=== PATIENT | male | born 1950 | race Caucasian/White ===

== ENCOUNTER 2021-01-03 17:01 | Emergency (ER) | payer OTHER ==
[~2021-01-03] VITALS: Ht 198.1 cm; Wt 113.4 kg
[2021-01-03 17:57] VITALS: BP 100/52
[2021-01-03 17:58] LABS: Basophils # (auto) 0 10 ^3/uL (0-0.2); Basophils % (auto) 1.1 % (0.0-2.0); Eosinophils # (auto) 0.3 10 ^3/uL (0-0.8); Eosinophils % (auto) 7.2 % (0.0-7.0); Hematocrit 40.1 % (41.0-53.0); Hemoglobin 13.5 g/dL (13.5-17.5); Lymphocytes # (auto) 1.9 10 ^3/uL (0.4-5.4); Lymphocytes % (auto) 40.1 % (10.0-50.0); Mean Corpuscular Hemoglobin 30.8 pg (28.0-32.0); Mean Corpuscular Hgb Conc. 33.6 g/dL (32.0-36.0); Mean Corpuscular Volume 91.9 fL (80.0-100.0); Monocytes # (auto) 0.4 10 ^3/uL (0-1.3); Monocytes % (auto) 9.2 % (0.0-12.0); Neutrophils % (auto) 42.4 % (37.0-80.0); Nucleated Red Blood Cells % 0.1 %; Platelet Count (auto) 179 10^3/uL (140-450); Red Blood Cells 4.37 10^6/uL (4.5-5.90); Red Cell Distribution Width 13.3 % (11.8-14.3); White Blood Cell 4.7 10^3/uL (4.4-10.8)
[2021-01-03 18:13] LABS: Albumin 3.6 g/dL (3.4-5.0); Anion Gap 9 (5-15); Calcium 8.2 mg/dL (8.5-10.1); Carbon Dioxide 20 mmol/L (21-32); Chloride 108 mmol/L (98-107); Glucose 96 mg/dL (74-106); Sodium 137 mmol/L (136-145)
[2021-01-03 18:15] LABS: Alanine Aminotransferase 32 U/L (16-61); Aspartate Aminotransferase 22 U/L (15-37); GFR African American 129 mL/min; GFR Non-African American 107 mL/min
[2021-01-03 18:29] LABS: Alkaline Phosphatase 89 U/L (45-117); BUN/Creatinine Ratio 16.9; Bilirubin, Total 0.4 mg/dL (0.2-1.0); Blood Urea Nitrogen 13 mg/dL (7-18); Total Protein 7.2 g/dL (6.4-8.2)
== END 2021-01-03 18:20 | disposition left against medical advice (07) ==
LOC: ER 17:09
DX: R53.1 Weakness (principal); Z53.21 Procedure and treatment not carried out due to patient leaving prior to being seen by health care provider
CPT/HCPCS: 36415; 80053; 83735; 83880; 84484; 85025; 93005

== ENCOUNTER 2021-02-15 06:45 | Inpatient (IN) | payer OTHER ==
[~2021-02-15] VITALS: Ht 198.1 cm; Wt 116.6 kg
[2021-02-15 07:45] LABS: Basophils # (auto) 0 10 ^3/uL (0-0.2); Basophils % (auto) 0.7 % (0.0-2.0); Eosinophils # (auto) 0.3 10 ^3/uL (0-0.8); Hematocrit 40.5 % (41.0-53.0); Hemoglobin 13.9 g/dL (13.5-17.5); Lymphocytes % (auto) 21.7 % (10.0-50.0); Mean Corpuscular Hemoglobin 31.2 pg (28.0-32.0); Mean Corpuscular Hgb Conc. 34.4 g/dL (32.0-36.0); Mean Corpuscular Volume 90.7 fL (80.0-100.0); Monocytes # (auto) 0.5 10 ^3/uL (0-1.3); Neutrophils # (auto) 2.9 10 ^3/uL (1.6-8.6); Neutrophils % (auto) 59.6 % (37.0-80.0); Nucleated Red Blood Cells % 0.1 %; Platelet Count (auto) 184 10^3/uL (140-450); Red Blood Cells 4.46 10^6/uL (4.5-5.90); Red Cell Distribution Width 13.7 % (11.8-14.3); White Blood Cell 4.8 10^3/uL (4.4-10.8)
[2021-02-15 07:58] LABS: INR 0.98 (0.9-1.15); Partial Thromboplastin Time 27.4 sec (23.0-31.2)
[2021-02-15 08:02] LABS: Albumin 3.6 g/dL (3.4-5.0); Anion Gap 9 (5-15); Blood Urea Nitrogen 12 mg/dL (7-18); Calcium 8.3 mg/dL (8.5-10.1); Carbon Dioxide 21 mmol/L (21-32); Chloride 112 mmol/L (98-107); Glucose 96 mg/dL (74-106); Sodium 142 mmol/L (136-145)
[2021-02-15 08:08] LABS: Alanine Aminotransferase 25 U/L (16-61); Alkaline Phosphatase 95 U/L (45-117); Aspartate Aminotransferase 17 U/L (15-37); BUN/Creatinine Ratio 15.8; Bilirubin, Total 0.3 mg/dL (0.2-1.0); GFR African American 131 mL/min; GFR Non-African American 108 mL/min; Total Protein 7.1 g/dL (6.4-8.2)
[2021-02-15] MEDS ORDERED: IOHEXOL 350 MG/ML 100ML IJ ONE (08:12)
[2021-02-15] MEDS ORDERED: SODIUM CHLORIDE 0.9% 1,000 ML IV ONE (09:15)
[2021-02-15] MEDS ORDERED: MORPHINE SULF INJ 2 MG/ML SYRINGE 1ML IV PRN ×3 (11:00→12:15)
[2021-02-15] MEDS ORDERED: NITROGLYCERIN 0.4 MG SL TAB SL PRN ×3 (11:00→12:15)
[2021-02-15] MEDS ORDERED: IPRATROPIUM BROM 0.5 MG/2.5ML INH SOL NEB PRN (12:15)
[2021-02-15] MEDS ORDERED: LORazepam 0.5 MG TAB PO PRN (12:15)
[2021-02-15] MEDS: ALUM & MAG HYDROX-SIMETH LIQ(MAALOX) 30 ML PO ONE ×2 (12:15→13:14)
[2021-02-15] MEDS ORDERED: ALUM & MAG HYDROX-SIMETH LIQ(MAALOX) 30 ML PO PRN (12:15)
[2021-02-15] MEDS ORDERED: HYDROcodone-ACET 5/325MG TAB PO PRN (12:15)
[2021-02-15] MEDS: ATORVASTATIN 20 MG TAB PO ONE ×2 (12:15→13:14)
[2021-02-15] MEDS ORDERED: ONDANSETRON HCL 4 MG/2 ML VIAL IV PRN ×2 (12:15)
[2021-02-15] MEDS ORDERED: MORPHINE SULFATE 4 MG/ML SYR/VIAL IV PRN (12:15)
[2021-02-15] MEDS ORDERED: DOCUSATE SOD 100 MG CAP PO PRN (12:15)
[2021-02-15] MEDS ORDERED: ACETAMINOPHEN 325 MG TAB PO PRN (12:15)
[2021-02-15] MEDS ORDERED: hydrALAZINE HCL 20 MG/ML VL IV PRN (12:30)
[2021-02-15 12:43] LABS: Urine Bacteria NONE SEEN /hpf (None Seen); Urine Blood Negative /uL (Negative); Urine WBC None Seen /hpf (0 - 3)
[2021-02-15 12:47] LABS: Urine Specific Gravity > 1.050 (1.001-1.035)
[2021-02-15 13:00] VITALS: BP 167/76
[2021-02-15 13:06] LABS: Amphetamine Screen, Urine NEGATIVE (NEGATIVE); Barbiturate Scree,Urine NEGATIVE (NEGATIVE); Benzodiazephine Screen, Urine NEGATIVE (NEGATIVE); Cannabinoid Screen, Urine NEGATIVE (NEGATIVE); Cocaine Screen, Urine NEGATIVE (NEGATIVE); Opiate Scree,Urine NEGATIVE (NEGATIVE); Phencyclidine Screen, Urine NEGATIVE (NEGATIVE)
[2021-02-15 16:19] VITALS: BP 173/84
[2021-02-15] MEDS ORDERED: CARV25TA55 PO (16:42)
[2021-02-15] MEDS ORDERED: AMLO-489 PO (16:42)
[2021-02-15] MEDS ORDERED: ATOR10TA52 PO (16:42)
[2021-02-15] MEDS ORDERED: LISI20TA28 PO (16:42)
[2021-02-15 17:00] VITALS: BP_SYST 113; BP_SYST 171; BP_DIAS 50; BP_DIAS 75
[2021-02-15] MEDS: FUROSEMIDE 20 MG/2 ML VIAL IV SCH (18:28)
[2021-02-15] MEDS: FAMOTIDINE (10MG/ML) 2ML VL IV SCH (21:51)
[2021-02-15] MEDS: CARVEDILOL 3.125 MG TAB PO SCH (21:52)
[2021-02-15] MEDS ORDERED: ATORVASTATIN 20 MG TAB PO SCH (22:00)
[2021-02-15 22:28] VITALS: BP 142/76
[2021-02-16 05:15] VITALS: BP 153/76
[2021-02-16 05:19] LABS: Basophils # (auto) 0 10 ^3/uL (0-0.2); Basophils % (auto) 0.5 % (0.0-2.0); Eosinophils # (auto) 0.3 10 ^3/uL (0-0.8); Eosinophils % (auto) 6.2 % (0.0-7.0); Hematocrit 42.2 % (41.0-53.0); Hemoglobin 14.4 g/dL (13.5-17.5); Lymphocytes % (auto) 18.2 % (10.0-50.0); Mean Corpuscular Hemoglobin 30.8 pg (28.0-32.0); Mean Corpuscular Hgb Conc. 34.1 g/dL (32.0-36.0); Mean Corpuscular Volume 90.4 fL (80.0-100.0); Monocytes # (auto) 0.8 10 ^3/uL (0-1.3); Monocytes % (auto) 14.3 % (0.0-12.0); Neutrophils # (auto) 3.2 10 ^3/uL (1.6-8.6); Neutrophils % (auto) 60.8 % (37.0-80.0); Platelet Count (auto) 198 10^3/uL (140-450); Red Blood Cells 4.67 10^6/uL (4.5-5.90); Red Cell Distribution Width 13.6 % (11.8-14.3); White Blood Cell 5.3 10^3/uL (4.4-10.8)
[2021-02-16 05:39] LABS: Albumin 3.6 g/dL (3.4-5.0); Anion Gap 7 (5-15); Blood Urea Nitrogen 12 mg/dL (7-18); Calcium 8.8 mg/dL (8.5-10.1); Carbon Dioxide 25 mmol/L (21-32); Chloride 106 mmol/L (98-107); Glucose 94 mg/dL (74-106); Magnesium 2.4 mg/dL (1.6-2.6); Potassium 3.8 mmol/L (3.5-5.1); Sodium 138 mmol/L (136-145)
[2021-02-16 05:46] LABS: Alanine Aminotransferase 23 U/L (16-61); Alkaline Phosphatase 99 U/L (45-117); Aspartate Aminotransferase 13 U/L (15-37); BUN/Creatinine Ratio 14.6; Bilirubin, Total 1.2 mg/dL (0.2-1.0); GFR African American 120 mL/min; GFR Non-African American 99 mL/min; Phosphorus 3.8 mg/dL (2.5-4.90); Total Protein 7.4 g/dL (6.4-8.2)
[2021-02-16] MEDS: FUROSEMIDE 20 MG/2 ML VIAL IV SCH (06:30)
[2021-02-16 07:22] VITALS: BP 153/76
[2021-02-16 07:53] LABS: INR 1.03 (0.9-1.15); Partial Thromboplastin Time 28.5 sec (23.0-31.2)
[2021-02-16] MEDS ORDERED: ADENOSINE 98 MG in GIVE UN-DILUTED 0 ML IV STA (08:04)
[2021-02-16 08:21] VITALS: BP 147/73
[2021-02-16 08:59] VITALS: BP 147/86
[2021-02-16] MEDS: FAMOTIDINE (10MG/ML) 2ML VL IV SCH (09:15)
[2021-02-16] MEDS: CARVEDILOL 3.125 MG TAB PO SCH (09:16)
[2021-02-16] MEDS ORDERED: ENOXAPARIN SOD 40 MG/0.4 ML SYRINGE SC SCH (10:00)
[2021-02-16] MEDS ORDERED: ASPirin 81 mg TAB PO SCH (10:00)
[2021-02-16] MEDS ORDERED: DOCUSATE SOD 100 MG CAP PO SCH ×2 (10:00)
[2021-02-16] MEDS ORDERED: LISINOPRIL 10 MG TAB PO SCH (10:00)
[2021-02-16] MEDS ORDERED: ERGOCALCIFEROL 50,000 UNIT(1.25MG) CAP PO SCH (11:00)
[2021-02-16 13:00] VITALS: BP 127/68
[2021-02-16 14:38] VITALS: BP 127/68
== END 2021-02-16 15:30 | disposition home or self-care (01) | DRG 392 ==
LOC: ER 06:45 → TELE 10:56 → TELE-CENTR 12:00
PROVIDERS: ADMIT Hospitalist; ATTEND Internal Medicine
DX: K21.9 Gastro-esophageal reflux disease without esophagitis (principal); I16.9 Hypertensive crisis, unspecified; I24.9 Acute ischemic heart disease, unspecified; I25.10 Atherosclerotic heart disease of native coronary artery without angina pectoris; I27.21 Secondary pulmonary arterial hypertension; I50.9 Heart failure, unspecified; E66.3 Overweight; J44.9 Chronic obstructive pulmonary disease, unspecified; E78.5 Hyperlipidemia, unspecified; Z20.822 Contact with and (suspected) exposure to COVID-19; I11.0 Hypertensive heart disease with heart failure; Z95.1 Presence of aortocoronary bypass graft; Z90.49 Acquired absence of other specified parts of digestive tract; Z86.79 Personal history of other diseases of the circulatory system; Z68.28 Body mass index [BMI] 28.0-28.9, adult
CPT/HCPCS: 36415; 71275; 78452; 80053; 80307; 81001; 82306; 83036; 83735; 83880; 84100; 84443; 84484; 85025; 85610; 85730; 87040; 87086; 87426; 93005; 93017; 93306; 96360; G0378; J0153; J3490

== ENCOUNTER 2021-12-26 20:21 | Emergency (ER) | payer OTHER ==
[~2021-12-26] VITALS: Ht 185.4 cm; Wt 95.3 kg
[~2021-12-26 20:21] MED LIST: AMLO-489 PO; ATOR10TA52 PO; CARV25TA55 PO; LISI20TA28 PO
[2021-12-26 20:32] VITALS: BP 152/82
== END 2021-12-26 21:24 | disposition left against medical advice (07) ==
LOC: EDBD 20:21 → ER 20:23
DX: R11.2 Nausea with vomiting, unspecified (principal); Z53.21 Procedure and treatment not carried out due to patient leaving prior to being seen by health care provider

== ENCOUNTER 2024-10-12 23:40 | Inpatient (IN) | payer MEDICARE, OTHER ==
[~2024-10-12] VITALS: Ht 198.1 cm; Wt 109.0 kg
[~2024-10-12 23:40] MED LIST changes: -AMLO-489 PO; +AMLO1TAB22 PO; -LISI20TA28 PO; +LISI20TA56 PO
[2024-10-13 00:34] LABS: Basophils # (auto) 0 10 ^3/uL (0-0.2); Eosinophils # (auto) 0.3 10 ^3/uL (0-0.8); Eosinophils % (auto) 7.6 % (0.0-7.0); Hematocrit 39.7 % (41.0-53.0); Hemoglobin 13.4 g/dL (13.5-17.5); Lymphocytes # (auto) 1.3 10 ^3/uL (0.4-5.4); Lymphocytes % (auto) 29.5 % (10.0-50.0); Mean Corpuscular Hgb Conc. 33.8 g/dL (32.0-36.0); Mean Corpuscular Volume 91.7 fL (80.0-100.0); Monocytes # (auto) 0.5 10 ^3/uL (0-1.3); Monocytes % (auto) 12.4 % (0.0-12.0); Neutrophils # (auto) 2.2 10 ^3/uL (1.6-8.6); Neutrophils % (auto) 49.5 % (37.0-80.0); Platelet Count (auto) 190 10^3/uL (140-450); Red Blood Cells 4.33 10^6/uL (4.5-5.90); Red Cell Distribution Width 13.6 % (11.8-14.3); White Blood Cell 4.4 10^3/uL (4.4-10.8)
[2024-10-13 00:47] LABS: Alanine Aminotransferase 14 U/L (7-40); Albumin 4.3 g/dL (3.2-4.8); Alkaline Phosphatase 84 U/L (46-116); Anion Gap 6 (5-15); Bilirubin, Total 0.4 mg/dL (0.2-1.0); Calcium 10.2 mg/dL (8.7-10.4); Carbon Dioxide 25 mmol/L (20-31); Chloride 106 mmol/L (98-107); Potassium 4.7 mmol/L (3.5-5.1); Sodium 137 mmol/L (136-145)
[2024-10-13 00:48] LABS: Lactic Acid w/Reflex 3.5 mmol/L (0.4-2.0); Total Protein 6.9 g/dL (5.7-8.2)
[2024-10-13 00:50] LABS: Aspartate Aminotransferase 12 U/L (13-40); Glucose 121 mg/dL (74-106); Lipase 84 U/L (12-53)
[2024-10-13 01:33] LABS: BUN/Creatinine Ratio 17.6 (10.0-20.0); Blood Urea Nitrogen 16 mg/dL (9-23)
--- NOTE | 2024-10-13 01:40 | ED.PDOC ---
Altered Mental Status HPI Comments This patient is a 74-year-old male who arrives to the ED today via EMS due to a acute loss of consciousness event at home approximately 1/2 hour prior to arrival. According to the , patient was in bed when he had a what appears to be tonic clonic event. Patient has no history of seizure activity. Patient does have a history of hypertension as well as some cardiac concerns including valve replacement. Blood pressure was elevated at arrival. Patient was A&O x3 with some mild cognition deficits. Chief Complaint: Seizure Time Seen by MD: 23:46 Primary Care Provider: MIRANDA Reviewed Notes: Nurses Notes, Box Strapper Notes Allergies: Coded Allergies: NO KNOWN ALLERGIES (Unverified , 11/18/13) Home Meds Reported Medications Lisinopril (Lisinopril) 20 Mg Tab, 20 MG PO BID, MG 02/15/21 Carvedilol (Carvedilol) 25 Mg Tab, 25 MG PO Q12HR, MG 02/15/21 Atorvastatin Calcium (ATORVASTATIN CALCIUM) 10 Mg Tab, 10 MG PO QHSP, TAB 02/15/21 Amlodipine Besylate (Amlodipine Besylate) 5 Mg Tab, 10 MG PO DAILY for HTN, MG 02/15/21 Information Source: Patient, Emergency Med Personnel Mode of Arrival: EMS Severity: Moderate Timing: Minutes Duration: Minutes Prehospital treatment: 12 Lead EKG Quality: Confusion Recent: None History of: Diabetes Past Medical History PAST MEDICAL HISTORY: HTN Past Medical History (Other): History of coronary concerns Surgical History: Appendectomy Surgical History (Other): Open heart surgery for valve replacement Family History Family History: Unknown Social History Smoker: Non-Smoker Alcohol: Denies ETOH Use Drugs: Denies Drug Use Lives In: Home Constitutional: reports: weakness; denies: chills, diaphoresis, fatigue, fever, malaise, sweats, others EENTM: denies: blurred vision, double vision, ear bleeding, ear discharge, ear drainage, ear pain, ear ringing, eye pain, eye redness, hearing loss, mouth pain, mouth swelling, nasal discharge, nose bleeding, nose congestion, nose pain, photophobia, tearing, throat pain, throat swelling, voice changes, others Respiratory: denies: cough, hemoptysis, orthopnea, SOB at rest, shortness of breath, SOB with excertion, stridor, wheezing, others Cardiovascular: denies: chest pain, dizzy spells, diaphoresis, Dyspnea on exertion, edema, irregular heart beat, left arm pain, lightheadedness, palpitations, PND, syncope, others Gastrointestinal: denies: abdomen distended, abdominal pain, blood streaked bowels, constipated, diarrhea, dysphagia, difficulty swallowing, hematemesis, melena, nausea, poor appetite, poor fluid intake, rectal bleeding, rectal pain, vomiting, others Genitourinary: denies: burning, dysuria, flank pain, frequency, hematuria, incontinence, penile discharge, penile sore, pain, testicle pain, testicle swelling, urgency, others Neurological: reports: fainting, weakness; denies: dizziness, headache, left sided numbness, left sided weakness, numbness, paresthesia, pre-existing deficit, right sided numbness, right sided weakness, seizure, speech problems, tingling, tremors, others Musculoskeletal: denies: back pain, gout, joint pain, joint swelling, muscle pain, muscle stiffness, neck pain, others Integumetry: denies: bruises, change in color, change in hair/nails, dryness, laceration, lesions, lumps, rash, wounds, others Allergic/Immunocompromised: denies: Difficulty Healing, Frequent Infections, Hives, Itching, others Hematologic/Lymphatic: denies: anemia, blood clots, easy bleeding, easy bruising, swollen glands, others Endocrine: denies: excessive hunger, excessive sweating, excessive thirst, excessive urination, flushing, intolerance to cold, intolerance to heat, unexplained weight gain, unexplained weight loss, others Psychiatric: denies: anxiety, bipolar disorder, depression, hopeless, panic disorder, schizophrenia, sleepless, suicidal, others Unable to Obtain due to: Altered Mental Status Physical Exam General Appearance: Moderate Distress (Patient appears to be in [id number] distress at time of evaluation.), Normal HEENT: Head (Cranial exam was unremarkable. No signs of trauma. No skull depressions or deformities.), Normal ENT Inspection, Pharynx Normal, TMs Normal Neck: Full Range of Motion, Non-Tender, Normal, Normal Inspection Respiratory: Chest Non-Tender, Lungs Clear, No Accessory Muscle Use, No Respiratory Distress, Normal Breath Sounds Cardiovascular: No Edema, No JVD, No Murmur, No Gallop, Normal Peripheral Pulses, Regular Rate/Rhythm Breast Exam: Deferred Gastrointestinal: No Organomegaly, Non Tender, No Pulsatile Mass, Normal Bowel Sounds, Soft Genitalia: Deferred Pelvic: Deferred Rectal: Deferred Extremities: No calf tenderness, Normal capillary refill, Normal inspection, Normal range of motion, Non-tender, No pedal edema Neurologic: Alert, No Motor Deficits, No Sensory Deficits Cerebellar Function: NOT DONE Reflexes: NOT DONE Skin: Dry, Normal Color, Warm Lymphatic: No Adenopathy Was a procedure done? Was a procedure done?: No Differential Diagnosis (ALOC) Differential Diagnosis: Dehydration, Hypoglycemia, Encephalopathy, Sepsis, S eizure, Closed Head Injury, CVA, Mass Lesion, SAH, Heart Failure X-Ray, Labs, Meds, VS Vital Signs Date Time Temp Pulse Resp B/P (MAP) Pulse Ox O2 Delivery O2 Flow Rate FiO2 10/13/24 00:11 97.7 78 20 164/78 (106) 93 10/13/24 00:05 69 Lab Test 10/13/24 01:02 10/13/24 00:01 Range/Units Troponin I High Sensitivity Pending 8 </=54 ng/L White Blood Count 4.4 4.4-10.8 10^3/uL Red Blood Count 4.33 L 4.5-5.90 10^6/uL Hemoglobin 13.4 L 13.5-17.5 g/dL Hematocrit 39.7 L 41.0-53.0 % Mean Corpuscular Volume 91.7 80.0-100.0 fL Mean Corpuscular Hemoglobin 31.0 28.0-32.0 pg Mean Corpuscular Hemoglobin Concent 33.8 32.0-36.0 g/dL Red Cell Distribution Width 13.6 11.8-14.3 % Platelet Count 190 140-450 10^3/uL Mean Platelet Volume 8.0 6.9-10.8 fL Neutrophils (%) (Auto) 49.5 37.0-80.0 % Lymphocytes (%) (Auto) 29.5 10.0-50.0 % Monocytes (%) (Auto) 12.4 H 0.0-12.0 % Eosinophils (%) (Auto) 7.6 H 0.0-7.0 % Basophils (%) (Auto) 1.0 0.0-2.0 % Neutrophils # (Auto) 2.2 1.6-8.6 10 ^3/uL Lymphocytes # (Auto) 1.3 0.4-5.4 10 ^3/uL Monocytes # (Auto) 0.5 0-1.3 10 ^3/uL Eosinophils # (Auto) 0.3 0-0.8 10 ^3/uL Basophils # (Auto) 0 0-0.2 10 ^3/uL Nucleated Red Blood Cells 0.0 % Sodium Level 137 136-145 mmol/L Potassium Level 4.7 3.5-5.1 mmol/L Chloride Level 106 98-107 mmol/L Carbon Dioxide Level 25 20-31 mmol/L Anion Gap 6 5-15 Blood Urea Nitrogen Pending Creatinine 0.91 0.700-1.30 mg/dL Glomerular Filtration Rate Calc 90 >90 mL/min BUN/Creatinine Ratio Pending Serum Glucose 121 H 74-106 mg/dL Lactic Acid Level 3.5 *H 0.4-2.0 mmol/L Calcium Level 10.2 8.7-10.4 mg/dL Total Bilirubin 0.4 0.2-1.0 mg/dL Aspartate Amino Transferase (AST) 12 L 13-40 U/L Alanine Aminotransferase (ALT) 14 7-40 U/L Alkaline Phosphatase 84 46-116 U/L Total Protein 6.9 5.7-8.2 g/dL Albumin 4.3 3.2-4.8 g/dL Lipase 84 H 12-53 U/L X-Ray, Labs, Meds, VS Comment Imaging studies were pending at time of this note. Urine was pending at time of this note. Serum laboratories revealed an elevated lactic acid as well as an elevated lipase indicative of a pancreatitis. EKG revealed a sinus rhythm with a rate of 69. Prolonged NM interval as well as probable left atrial enlargement, left ventricular hypertrophy and borderline T abnormalities. NM interval at 2:32 a.m. and QT interval 413. Patient will require a cardiac consultation tomorrow. Patient will be admitted for acute coronary syndrome as well as pancreatitis. Patient will require a neurologic consult tomorrow to assess the ALOC event. Time of 1ST Reevaluation: 01:39 Reevaluation 1ST: Improved Consultation: PCP, Cardiology, Neurology Patient Education/Counseling: Diagnosis, Treatment Family Education/Counseling: Diagnosis, Treatment Departure 1 Departure Time of Disposition: 01:39 Impression: Primary Impression: Acute coronary syndrome Additional Impression: Pancreatitis Disposition: ADMITTED INPATIENT Condition: Fair Discharged With: Self Critical Care Note Critical Care Time?: No Stability Stability form required: No Heart Score Heart Score: Heart Score Response (Comments) Value History Slightly Suspicious 0 EKG Repolarization Disturb 1 Age >65 2 Risk Factors 1 or 2 risk factors 1 Troponin Normal limit 0 Total 4 LATOYA QUINTERO [facility] Oct 13, 2024 01:40
[2024-10-13] MEDS: levETIRAcetam 1000 mg/100ml 100 ML IV ONE (03:04)
[2024-10-13] MEDS: SODIUM CHLORIDE 0.9% 1,000 ML IV ONE (03:04)
--- NOTE | 2024-10-13 03:38 | DVH ---
Examination: HWOCT CLINICAL INDICATION: ALOC COMPARISON: None. CONTRAST USED: None. TECHNIQUE: The examination was performed obtaining 5 mm slices without contrast. CT scan done accord ing to ALARA (As Low as Reasonably Achievable). Multiplanar reconstructions were obtained. FINDINGS: SUPRATENTORIAL BRAIN: Cerebral Hemispheres: Age appropriate neuroparenchymal volume loss is seen. There is no midline shif t or mass effect, intra or extra-axial fluid collections or hemorrhage. Periventricular White Matter/Basal Ganglia: Periventricular and deep white matter small vessel ischem ic changes are seen. No abnormal areas of altered attenuation within the basal ganglia. POSTERIOR FOSSA: The brainstem is normal and the visualized cerebellar hemispheres are unremarkable. VENTRICULAR SYSTEM: The ventricular system shows slight ex vacuo prominence. There is no evidence of hydrocephalus or transependymal flow of cerebrospinal fluid. SKULL BASE AND PARASELLAR REGION: The skull base is normal with no parasellar masses or abnormalities identified. CALVARIUM AND SCALP REGION: No abnormality is seen. PARANASAL SINUSES: There is moderate mucosal thickening involving the bilateral maxillary and right e thmoid sinuses. IMPRESSION: 1. No acute intracranial abnormality detected. 2. Age related cerebral atrophy and small vessel ischemic changes. Electronically Signed 10/13/2024 03:38 Farhat Newell
--- NOTE | 2024-10-13 03:53 | DVH ---
Examination: CXRP Clinical Indication: Shortness of breath Comparison: None. Technique: Frontal radiograph of the chest was obtained. Findings: Lungs are clear and well expanded with no pulmonary infiltrate or pleural effusion. There is no pneumothorax. The cardiomediastinal silhouette is within normal limits. No acute osseous abnormality is seen. Median sternotomy status. Impression: 1. No acute cardiopulmonary disease is seen. 2. Median sternotomy status. Electronically Signed 10/13/2024 03:52 Farhat Newell
[2024-10-13 05:28] VITALS: PULSE 82; RESP 18; O2SAT 98
[2024-10-13 08:00] VITALS: BP 127/59; PULSE 58; RESP 18; TEMP 98.4; O2SAT 93
[2024-10-13] MEDS ORDERED: ACETAMINOPHEN 325 MG TAB PO PRN (09:30)
[2024-10-13] MEDS ORDERED: NITROGLYCERIN 0.4 MG SL TAB SL PRN (09:30)
[2024-10-13] MEDS ORDERED: MORPHINE SULFATE INJ 2 MG/ml SYRG IV PRN ×2 (09:30)
[2024-10-13] MEDS ORDERED: HYDROcodone-ACET 5/325MG TAB PO PRN (09:30)
[2024-10-13] MEDS ORDERED: ONDANSETRON HCL 4 MG/2 ML VIAL IV PRN (09:30)
--- NOTE | 2024-10-13 09:30 | DVHHP2 ---
History of Present Illness Reason for Visit: Syncope History of Present Illness This 74-year-old male presents in the ED via EMS with a chief complaint of syncope. The patient is currently awake alert and oriented x3, reports his called 911 due to witnessed syncope and seizures for a few minutes. The patient states that he woke up in the ambulance with no recollection of the event. The patient denies history of seizures. Denies dizziness, headache, chest pain, palpitations, shortness of breath, or other acute symptoms. The patient with significant cardiac history reports last seen his Cardiology Dr. Monreal in July 28, 2024. Past medical history of hypertension, hyperlipidemia, heart failure likely low EF, aortic aneurysm repair, aortic valve replacement, and ETOH abuse. Past Medical History As stated in HPI Past Surgical History Aortic aneurysm repair Aortic valve repair Family History Reviewed, non-contributory to the management of this case. Past Social History Denies smoking cigarettes or illicit drug use. Admits to alcohol use beers 1-2 per week Review of Systems Constitutional: Yes: Malaise; No: Fever, Chills, Sweats, Weakness, Other Eyes: No: Pain, Vision change, Conjunctivae inflammation, Eyelid inflammation, Other, Redness ENT: No: Ear pain, Ear discharge, Nose pain, Nose discharge, Nose congestion, Mouth pain, Mouth swelling, Throat pain, Throat swelling, Other Respiratory: No: Cough, Dry, Shortness of breath, SOB with excertion, Wheezing, Hemoptysis, Pleuritic Pain, Sputum, Wheezing, Other Cardiovascular: No: Chest Pain, Palpitations, Orthopnea, Paroxysmal Noc. Dyspnea, Edema, Lt Headedness, Other Gastrointestinal: No: Nausea, Vomiting, Abdominal Pain, Diarrhea, Constipation, Melena, Hematochezia, Other Genitourinary: No Dysuria, No Frequency, No Incontinence, No Hematuria, No Retention, No Other Musculoskeletal: No: other, neck pain, shoulder pain, arm pain, back pain, hand pain, leg pain, foot pain Neurological: Seizures, Other (Syncope); No: Weakness, Numbness, Incoordinatio n, Change in speech, Confusion Allergies: Coded Allergies: NO KNOWN ALLERGIES (Unverified , 11/18/13) Medications Current Medications Medications Dose Ordered Sig/Elmer Route Start Time Stop Time Status Last Admin Dose Admin Amlodipine Besylate 10 mg DAILY PO 10/13/24 10:00 Lisinopril 20 mg BID PO 10/13/24 10:00 Atorvastatin Calcium 10 mg QHSP PO 10/13/24 22:00 Carvedilol 25 mg BID PO 10/13/24 10:00 Exam Vital Signs Vital Signs Date Time Temp Pulse Resp B/P (MAP) Pulse Ox O2 Delivery O2 Flow Rate FiO2 10/13/24 06:00 72 15 138/62 (87) 95 10/13/24 05:28 Room Air* 0 21 10/13/24 02:51 98.0 98.0 General Appearance: Alert, Oriented X3, Cooperative, mild distress HEENT: Atraumatic, PERRLA, EOMI, Mucous membr. moist/pink Respiratory: Clear to auscultation, Normal air movement Cardiovascular: Regular rate, Normal S1, Normal S2, No murmurs Abdominal: Normal bowel sounds, Soft, No tenderness Extremities: No clubbing, No edema, Normal pulses Skin: No rashes, No breakdown, No significant lesion Neuro: Normal gait, Normal speech, Strength at 5/5 X4 ext, Normal tone Psych/Mental Status: Mental status NL Labs/Xrays Labs Test 10/13/24 02:01 10/13/24 01:02 10/13/24 00:01 Range/Units Lactic Acid Level 1.6 0.4-2.0 mmol/L Troponin I High Sensitivity 10 </=54 ng/L White Blood Count 4.4 4.4-10.8 10^3/uL Red Blood Count 4.33 L 4.5-5.90 10^6/uL Hemoglobin 13.4 L 13.5-17.5 g/dL Hematocrit 39.7 L 41.0-53.0 % Mean Corpuscular Volume 91.7 80.0-100.0 fL Mean Corpuscular Hemoglobin 31.0 28.0-32.0 pg Mean Corpuscular Hemoglobin Concent 33.8 32.0-36.0 g/dL Red Cell Distribution Width 13.6 11.8-14.3 % Platelet Count 190 140-450 10^3/uL Mean Platelet Volume 8.0 6.9-10.8 fL Neutrophils (%) (Auto) 49.5 37.0-80.0 % Lymphocytes (%) (Auto) 29.5 10.0-50.0 % Monocytes (%) (Auto) 12.4 H 0.0-12.0 % Eosinophils (%) (Auto) 7.6 H 0.0-7.0 % Basophils (%) (Auto) 1.0 0.0-2.0 % Neutrophils # (Auto) 2.2 1.6-8.6 10 ^3/uL Lymphocytes # (Auto) 1.3 0.4-5.4 10 ^3/uL Monocytes # (Auto) 0.5 0-1.3 10 ^3/uL Eosinophils # (Auto) 0.3 0-0.8 10 ^3/uL Basophils # (Auto) 0 0-0.2 10 ^3/uL Nucleated Red Blood Cells 0.0 % Sodium Level 137 136-145 mmol/L Potassium Level 4.7 3.5-5.1 mmol/L Chloride Level 106 98-107 mmol/L Carbon Dioxide Level 25 20-31 mmol/L Anion Gap 6 5-15 Blood Urea Nitrogen 16 9-23 mg/dL Creatinine 0.91 0.700-1.30 mg/dL Glomerular Filtration Rate Calc 90 >90 mL/min BUN/Creatinine Ratio 17.6 10.0-20.0 Serum Glucose 121 H 74-106 mg/dL Calcium Level 10.2 8.7-10.4 mg/dL Total Bilirubin 0.4 0.2-1.0 mg/dL Aspartate Amino Transferase (AST) 12 L 13-40 U/L Alanine Aminotransferase (ALT) 14 7-40 U/L Alkaline Phosphatase 84 46-116 U/L Total Protein 6.9 5.7-8.2 g/dL Albumin 4.3 3.2-4.8 g/dL Lipase 84 H 12-53 U/L PROCEDURE(s): HWOCT - HEAD WITHOUT CONTRAST REASON: ALOC ORDER NUMBER(s): [id number], ACCESSION NUMBER(s): [id number] Examination: HWOCT CLINICAL INDICATION: ALOC COMPARISON: None. CONTRAST USED: None. TECHNIQUE: The examination was performed obtaining 5 mm slices without contrast. CT scan done according to ALARA (As Low as Reasonably Achievable). Multiplanar reconstructions were obtained. FINDINGS: SUPRATENTORIAL BRAIN: Cerebral Hemispheres: Age appropriate neuroparenchymal volume loss is seen. There is no midline shift or mass effect, intra or extra-axial fluid collections or hemorrhage. Periventricular White Matter/Basal Ganglia: Periventricular and deep white matter small vessel ischemic changes are seen. No abnormal areas of altered attenuation within the basal ganglia. POSTERIOR FOSSA: The brainstem is normal and the visualized cerebellar hemispheres are unremarkable. VENTRICULAR SYSTEM: The ventricular system shows slight ex vacuo prominence. There is no evidence of hydrocephalus or transependymal flow of cerebrospinal fluid. SKULL BASE AND PARASELLAR REGION: The skull base is normal with no parasellar masses or abnormalities identified. CALVARIUM AND SCALP REGION: No abnormality is seen. PARANASAL SINUSES: There is moderate mucosal thickening involving the bilateral maxillary and right ethmoid sinuses. IMPRESSION: 1. No acute intracranial abnormality detected. 2. Age related cerebral atrophy and small vessel ischemic changes. Assessment/Plan Assessment/Plan #Syncope, rule out out cardiac etiology # HFrEF 10-30% (2013) # lactic acidosis, possible due to CHF exacerbation # rule out carotid stenosis # s/p aortic aneurysm repair # s/p aortic valve repair Admit to telemetry unit Cardiology consult Carotid Doppler Echocardiogram Check BNP, A1c, TSH daily wt, strict intake and output # Rule out seizures Neurology consult Seizure precautions # possible acute toxic encephalopathy 2/2 alcohol abuse # possible acute on chronic pancreatitis due to alcohol use Check ETOH Check for UDS # hypertension Continue with antihypertensive medications DASH diet # obesity Lifestyle modification counseled # hyperlipidemia Statins Check lipid panel DVT prophylaxis Medical plan discussed with patient and RN Plan discussed with: Patient My Orders Orders - 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 MARINA 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 CLERK Procedure Category Date Status Time Amlodipine Tablet PHA 10/13/24 In Process (Norvasc Tablet) 10:00 Lisinopril Tablet PHA 10/13/24 In Process (Zestril Tablet) 10:00 Atorvastatin (Lipitor) PHA 10/13/24 In Process 22:00 Carvedilol Tablet PHA 10/13/24 In Process (Coreg Tablet) 10:00 Drug Screen LAB 10/13/24 Logged 09:10 Urine Ethanol LAB 10/13/24 In Process 09:10 Hemoglobin A1c LAB 10/13/24 In Process 09:10 Thyroid Stimulating LAB 10/13/24 In Process Hormone 09:10 Lipid Panel LAB 10/13/24 In Process 09:10 * Cardiology Consult CONS 10/13/24 Verified 09:16 B-Type Natriuretic LAB 10/13/24 Verified Peptide 09:16 Echo 2d Mode Cardiac US 10/13/24 Verified DOP 09:16 * Neurology Consult CONS 10/13/24 Verified 09:16 Carotid Duplx W Color US 10/13/24 Verified DOP 09:16 Admit ADMIT 10/13/24 Verified 09:16 Code Status CODE 10/13/24 Verified 09:16 Hydrocodone-Acet PHA 10/13/24 Verified 5/325mg Tab ([place] 09:30 Ondansetron Hcl PHA 10/13/24 Verified (Zofran) 09:30 Enoxaparin Sodium [facility] 10/13/24 Verified (Lovenox) 10:00 Fall Risk Precautions [facility] 10/13/[address] 09:16 Complete Blood Count LAB 10/14/24 Verified 04:00 Comprehensive LAB 10/14/24 Verified Metabolic Panel 04:00 Cardiac DIET 10/13/24 Verified Diet-2gna,Lofat,Lochol Breakfast Condition: Fair [facility] 10/13/24 Verified 09:16 Acetaminophen Tablet [facility] 10/13/24 Verified (Tylenol Tablet) 09:30 Morphine Sulfate [facility] 10/13/24 Verified Injection 09:30 Nitroglycerin [facility] 10/13/24 Verified Sublingual (Ntrostat 09:30 Morphine Sulfate [facility] 10/13/24 Verified Injection 09:30 Stat Ekg For Chest [facility] 10/13/24 Verified Pain 09:16 Notify Md Of Changes [facility] 10/13/24 Verified From Base 09:16 Retail Product Demo Specialist For [facility] 10/13/24 Verified 24 Hours 09:16 Emergency Dysrhythmia [facility] 10/13/24 Verified Protocol 09:16 Rhythm Strips Once [facility] 10/13/24 Verified Every Shift 09:16 Oxygen By Nasal RT 10/13/24 Verified Cannula 09:16 Date of Service: Oct 13, 2024 Billing Provider: BRADEN MARINA Common Visit Codes: [id number] INP/OBS CARE (HIGH) BRADEN MARINAP Oct 13, 2024 09:30
[2024-10-13 09:35] LABS: LDL Cholesterol 99 mg/dL (< 100); Triglycerides 96 mg/dL (< 150)
[2024-10-13 09:36] LABS: Cholesterol 146 mg/dL (< 200)
[2024-10-13 09:37] LABS: Blood Alcohol < 3.0 mg/dL (<10); HDL Cholesterol 42 mg/dL (40-59)
[2024-10-13] MEDS: ENOXAPARIN SOD 40 MG/0.4 ML SYRINGE SC SCH (10:35)
[2024-10-13] MEDS: CARVEDILOL 12.5 MG TAB PO SCH (10:36)
[2024-10-13] MEDS: amLODIPine BESYLATE 5 MG TAB PO SCH (10:37)
[2024-10-13] MEDS: LISINOPRIL 20 MG TAB PO SCH (10:38)
[2024-10-13 12:00] VITALS: BP 130/60; PULSE 57; RESP 18; TEMP 98.5; O2SAT 95
--- NOTE | 2024-10-13 12:00 | DVH ---
Carotid Duplex Clinical History: syncope Comparison: None Technique: Duplex Doppler evaluation of the extracranial carotid and vertebral arteries including color Doppler and spectral/pulsed waveform analysis was performed. Findings: RIGHT SIDE: The peak systolic velocities are 51 cm/s in the CCA, 78 cm/s in the ICA. The ICA/CCA ratio is 1.5. The external carotid artery is patent with peak systolic velocity of 68 cm/s proximally. There is appropriate antegrade flow in the right vertebral artery. LEFT SIDE: The peak systolic velocities are 72 cm/s in the CCA, 95 cm/s in the ICA. The ICA/CCA ratio is 1.3. The external carotid artery is patent with peak systolic velocity of 87 cm/s proximally. There is appropriate antegrade flow in the left vertebral artery. IMPRESSION: 1. No hemodynamically significant stenosis noted in the right carotid system. 2. No hemodynamically significant stenosis noted in the left carotid system. Reference: Radiology 2003; 229:340-346 Normal ICA PSV is <125 cm/sec and no plaque or intimal thickening is visible sonographically additional criteria include ICA/CCA PSV ratio <2.0 and ICA EDV <40 cm/sec <50% ICA stenosis ICA PSV is <125 cm/sec and plaque or intimal thickening is visible sonographically additional criteria include ICA/CCA PSV ratio <2.0 and ICA EDV <40 cm/sec 50-69% ICA stenosis ICA PSV is 125-230 cm/sec and plaque is visible sonographically additional criteria include ICA/CCA PSV ratio of 2.0-4.0 and ICA EDV of 40-100 cm/sec 70% ICA stenosis but less than near occlusion ICA PSV is >230 cm/sec and visible plaque and luminal narrowing are seen at bauer-scale and color Dopp ler ultrasound (the higher the Doppler parameters lie above the threshold of 230 cm/sec, the greater the likelihood of severe disease) additional criteria include ICA/CCA PSV ratio >4 and ICA EDV >100 cm/sec
[2024-10-13 18:00] VITALS: BP 153/66; PULSE 60; RESP 18; TEMP 97.8; O2SAT 96
[2024-10-13] MEDS ORDERED: ATORVASTATIN 20 MG TAB PO SCH (22:00)
[2024-10-13 22:40] VITALS: TEMP 96
[2024-10-13 23:20] VITALS: PULSE 62; RESP 18; O2SAT 93
[2024-10-14 06:28] VITALS: BP 155/81; PULSE 73; RESP 18; O2SAT 94
[2024-10-14 06:57] LABS: Alanine Aminotransferase 11 U/L (7-40); Albumin 4.4 g/dL (3.2-4.8); Alkaline Phosphatase 82 U/L (46-116); Anion Gap 8 (5-15); Aspartate Aminotransferase 15 U/L (13-40); BUN/Creatinine Ratio 15.9 (10.0-20.0); Blood Urea Nitrogen 13 mg/dL (9-23); Carbon Dioxide 26 mmol/L (20-31); Chloride 106 mmol/L (98-107); Glucose 102 mg/dL (74-106); Potassium 4.4 mmol/L (3.5-5.1); Sodium 140 mmol/L (136-145)
[2024-10-14 06:58] LABS: Bilirubin, Total 1.1 mg/dL (0.2-1.0); Total Protein 7.6 g/dL (5.7-8.2)
[2024-10-14 07:04] LABS: Calcium 10.5 mg/dL (8.7-10.4)
[2024-10-14 07:44] LABS: Basophils # (auto) 0 10 ^3/uL (0-0.2); Basophils % (auto) 0.8 % (0.0-2.0); Eosinophils # (auto) 0.4 10 ^3/uL (0-0.8); Eosinophils % (auto) 6.8 % (0.0-7.0); Hematocrit 41.3 % (41.0-53.0); Hemoglobin 14.3 g/dL (13.5-17.5); Lymphocytes # (auto) 1.6 10 ^3/uL (0.4-5.4); Lymphocytes % (auto) 30.4 % (10.0-50.0); Mean Corpuscular Hemoglobin 31.5 pg (28.0-32.0); Mean Corpuscular Hgb Conc. 34.5 g/dL (32.0-36.0); Mean Corpuscular Volume 91.2 fL (80.0-100.0); Monocytes # (auto) 0.6 10 ^3/uL (0-1.3); Monocytes % (auto) 11.8 % (0.0-12.0); Neutrophils # (auto) 2.6 10 ^3/uL (1.6-8.6); Neutrophils % (auto) 50.2 % (37.0-80.0); Nucleated Red Blood Cells % 0.1 %; Platelet Count (auto) 197 10^3/uL (140-450); Red Blood Cells 4.53 10^6/uL (4.5-5.90); Red Cell Distribution Width 13.7 % (11.8-14.3); White Blood Cell 5.2 10^3/uL (4.4-10.8)
--- NOTE | 2024-10-14 14:06 | ECG ---
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
== END 2024-10-14 07:21 | disposition left against medical advice (07) | DRG 100 ==
LOC: ER 23:40 → EDBD 23:40 → EEVIPCON 10-13 09:16 → TELE 10-13 09:16
PROVIDERS: ADMIT Registered Nurse; ATTEND Registered Nurse
DX: R56.9 Unspecified convulsions (principal); G92.9 Unspecified toxic encephalopathy; I50.23 Acute on chronic systolic (congestive) heart failure; K85.20 Alcohol induced acute pancreatitis without necrosis or infection; I24.9 Acute ischemic heart disease, unspecified; E87.20 Acidosis, unspecified; K86.0 Alcohol-induced chronic pancreatitis; E78.5 Hyperlipidemia, unspecified; R55 Syncope and collapse; E66.9 Obesity, unspecified; I11.0 Hypertensive heart disease with heart failure; I65.29 Occlusion and stenosis of unspecified carotid artery; Z95.2 Presence of prosthetic heart valve; Z68.27 Body mass index [BMI] 27.0-27.9, adult; F10.10 Alcohol abuse, uncomplicated
CPT/HCPCS: 36415; 70450; 71045; 80053; 80061; 80320; 83036; 83605; 83690; 83880; 84443; 84484; 85025; 93005; 93886; 99291; G0378